=== PATIENT | male | born 1965 | race Caucasian/White ===

== ENCOUNTER 2017-10-26 14:45 | Inpatient (IN) | payer OTHER ==
[~2017-10-26] VITALS: Ht 185.4 cm; Wt 90.7 kg
[2017-10-26 15:00] VITALS: BP 140/88
[2017-10-26 15:40] LABS: BASOPHILS % (AUTO) 1.3 % (0.0-2.0); EOSINOPHILS % (AUTO) 1.9 % (0.0-3.0); HEMATOCRIT 38.7 % (42.0-52.0); HEMOGLOBIN 13.1 G/DL (14.2-18.0); LYMPHOCYTES % (AUTO) 44.7 % (20.0-45.0); MEAN CORPUSCULAR VOLUME 96 FL (80-99); MONOCYTES % (AUTO) 7.5 % (1.0-10.0); NEUTROPHILS % (AUTO) 44.5 % (45.0-75.0); PLATELET COUNT 230 K/UL (150-450); RED BLOOD COUNT 4.03 M/UL (4.70-6.10); RED CELL DISTRIBUTION WIDTH 12.1 % (11.6-14.8); WHITE BLOOD COUNT 5.9 K/UL (4.8-10.8)
[2017-10-26] MEDS ORDERED: [UNRECOGNIZED DRUG - OTHER] IV ONE (16:30)
[2017-10-26] MEDS ORDERED: LEVOTHYROXINE150 MCG ORAL (18:55)
[2017-10-26] MEDS ORDERED: ATORVASTATIN CA80 MG ORAL (18:55)
[2017-10-26] MEDS ORDERED: ATIVAN1 MG ORAL (18:55)
[2017-10-26] MEDS ORDERED: ODEFSEY TABLET1 EACH PO (18:55)
--- NOTE | 2017-10-26 19:54 | History and Physical ---
History of Present Illness General Date patient seen: Oct 26, 2017 Time patient seen: 16:30 Reason for Hospitalization: participation in clinical trial: [id number] Present Illness HPI Pt is electively admitted for above-captioned clinical trial. He has given informed consent for the drug study and wishes to proceed. Labs Test 10/26/17 14:00 White Blood Count 5.9 K/UL (4.8-10.8) Red Blood Count 4.03 M/UL (4.70-6.10) Hemoglobin 13.1 G/DL (14.2-18.0) Hematocrit 38.7 % (42.0-52.0) Mean Corpuscular Volume 96 FL (80-99) Mean Corpuscular Hemoglobin 32.4 PG (27.0-31.0) Mean Corpuscular Hemoglobin Concent 33.7 G/DL (32.0-36.0) Red Cell Distribution Width 12.1 % (11.6-14.8) Platelet Count 230 K/UL (150-450) Mean Platelet Volume 8.5 FL (6.5-10.1) Neutrophils (%) (Auto) 44.5 % (45.0-75.0) Lymphocytes (%) (Auto) 44.7 % (20.0-45.0) Monocytes (%) (Auto) 7.5 % (1.0-10.0) Eosinophils (%) (Auto) 1.9 % (0.0-3.0) Basophils (%) (Auto) 1.3 % (0.0-2.0) Allergies: Coded Allergies: EFAVIRENZ (Verified Allergy, Unknown, 10/26/17) SULFAMETHOXAZOLE (Verified Allergy, Unknown, rash, 10/26/17) Medication History Scheduled Atorvastatin Calcium* (Lipitor*), 80 MG ORAL DAILY, (Reported) Emtricitab/Rilpiviri/Tenof Ala (Odefsey Tablet), 1 EACH PO DAILY, (Reported) Levothyroxine Sodium* (Levothyroxine Sodium*), 175 MCG ORAL DAILY, (Reported) Lorazepam* (Ativan*), 1 MG ORAL BEDTIME, (Reported) Patient History History Provided By: Patient Healthcare decision maker Self Resuscitation status Full Code Advanced Directive on File No Patient History Narrative Patient was diagnosed with HIV in 2000; has been successfully treated, most recently with Odefsey. He feels well and has no acute problems. Past Medical/Surgical History Past Medical/Surgical History: (1) nodular goiter, now euthyroid on treatment (2) Hyperlipidemia (3) Clinical trial participant Review of Systems Constitutional: Reports: no symptoms Eye: Reports: no symptoms ENT: Reports: no symptoms Respiratory: Denies: cough, shortness of breath, stridor, wheezing, PATTEN, sputum Cardiovascular: Denies: chest pain, palpitations Gastrointestinal: Denies: abdominal pain, diarrhea, vomiting Genitourinary: Denies: dysuria Musculoskeletal: Reports: no symptoms Skin: Denies: rash Psychiatric: Reports: no symptoms Neurological: Reports: no symptoms Endocrine: Reports: no symptoms Hematologic/Lymphatic: Reports: no symptoms Physical Exam Last 24 Hour Vital Signs Date Time Temp Pulse Resp B/P (MAP) Pulse Ox O2 Delivery O2 Flow Rate FiO2 10/26/17 15:00 97.4 55 21 140/88 100 Room Air 97.4 Laboratory Tests Test 10/26/17 14:00 White Blood Count 5.9 K/UL (4.8-10.8) Red Blood Count 4.03 M/UL (4.70-6.10) L Hemoglobin 13.1 G/DL (14.2-18.0) L Hematocrit 38.7 % (42.0-52.0) L Mean Corpuscular Volume 96 FL (80-99) Mean Corpuscular Hemoglobin 32.4 PG (27.0-31.0) H Mean Corpuscular Hemoglobin Concent 33.7 G/DL (32.0-36.0) Red Cell Distribution Width 12.1 % (11.6-14.8) Platelet Count 230 K/UL (150-450) Mean Platelet Volume 8.5 FL (6.5-10.1) Neutrophils (%) (Auto) 44.5 % (45.0-75.0) L Lymphocytes (%) (Auto) 44.7 % (20.0-45.0) Monocytes (%) (Auto) 7.5 % (1.0-10.0) Eosinophils (%) (Auto) 1.9 % (0.0-3.0) Basophils (%) (Auto) 1.3 % (0.0-2.0) Height (Feet): 6 Height (Inches): 1.00 Weight (Pounds): 200 Medications Current Medications Medications (Trade) Dose Ordered Sig/Mendy Route PRN Reason Start Time Stop Time Status Last Admin Dose Admin Investigational Drug 150 mg/ Sodium Chloride 48 ml @ 96 mls/hr ONCE ONCE IV 10/27/17 06:30 10/27/17 06:59 Patient Own Medication (Patient's Own Med) 1 ea DAILY@1000 ORAL 10/27/17 10:00 11/26/17 09:59 Patient Own Medication (Patient's Own Med) 1 ea DAILY@1000 ORAL 10/27/17 10:00 11/26/17 09:59 Patient Own Medication (Patient's Own Med) 1 ea DAILY@1000 ORAL 10/27/17 10:00 11/26/17 09:59 Patient Own Medication (Patient's Own Med) 1 ea QHS PRN ORAL SLEEP 10/26/17 17:15 11/25/17 17:14 TRESSA CARRERA Oct 26, 2017 19:54
[2017-10-26 21:00] VITALS: BP 112/63
[2017-10-26] MEDS: LORAZEPAM 1 MG TABLET ORAL PRN (21:26)
[2017-10-27] MEDS ORDERED: [UNRECOGNIZED DRUG - MIXTURE] IV ONE ×2 (06:30)
[2017-10-27 08:00] VITALS: BP 128/78
[2017-10-27] MEDS ORDERED: LEVOTHYROXINE 175 MCG TABLET ORAL SCH (10:00)
[2017-10-27] MEDS ORDERED: ATORVASTATIN 80 MG TABLET ORAL SCH (10:00)
[2017-10-27] MEDS: ODEFSEY ORAL SCH (10:26)
[2017-10-27 12:00] VITALS: BP 124/76
--- NOTE | 2017-10-27 14:38 | General Progress Note ---
Assessment/Plan Problem List: (1) HIV (human immunodeficiency virus infection) ICD Codes: B20 - Human immunodeficiency virus [HIV] disease SNOMED: 52195135 Status: doing well Status Narrative Patient doing well. Assessment/Plan Will continue per [id number] protocol. Subjective Date patient seen: Oct 27, 2017 Time patient seen: 12:00 Constitutional: Reports: no symptoms HEENT: Reports: no symptoms Cardiovascular: Denies: chest pain, lightheadedness Respiratory: Denies: cough, shortness of breath Gastrointestinal/Abdominal: Denies: abdominal pain, diarrhea, nausea Genitourinary: Denies: burning, hematuria Neurologic/Psychiatric: Reports: no symptoms Endocrine: Reports: no symptoms Hematologic/Lymphatic: Reports: no symptoms Allergies: Coded Allergies: EFAVIRENZ (Verified Allergy, Unknown, 10/26/17) SULFAMETHOXAZOLE (Verified Allergy, Unknown, rash, 10/26/17) Subjective Patient feels well. Tolerated infusion of investigational agent c. 0630 without any adverse reaction reported. Objective Last 24 Hour Vital Signs Date Time Temp Pulse Resp B/P (MAP) Pulse Ox O2 Delivery O2 Flow Rate FiO2 10/27/17 12:00 97.8 57 18 124/76 98 Room Air 97.8 10/27/17 08:00 97.5 52 18 128/78 98 Room Air 97.5 10/26/17 21:00 97.4 51 18 112/63 97 Room Air 97.4 10/26/17 15:00 97.4 55 21 140/88 100 Room Air 97.4 Intake and Output 10/26/17 10/27/17 19:00 07:00 Intake Total 300 ml 240 ml Balance 300 ml 240 ml Intake Oral 300 ml 240 ml # Voids 1 2 Height (Feet): 6 Height (Inches): 1.00 Weight (Pounds): 200 General Appearance: WD/WN EENT: PERRL/EOMI Neck: supple Cardiovascular: normal rate Respiratory/Chest: lungs clear Abdomen: soft Edema: no edema noted Arm (L), no edema noted Arm (R), no edema noted Leg (L), no edema noted Leg (R), no edema noted Pedal (L), no edema noted Pedal (R), no edema noted Generalized Skin: rash - none TRESSA CARRERA Oct 27, 2017 14:38
[2017-10-27 16:00] VITALS: BP 102/64
[2017-10-27] MEDS: LORAZEPAM 1 MG TABLET ORAL PRN (21:02)
[2017-10-28 00:35] VITALS: BP 108/60
[2017-10-28] MEDS: LEVOTHYROXINE 175 MCG TABLET ORAL SCH (06:42)
[2017-10-28 07:30] LABS: BASOPHILS % (AUTO) 1.1 % (0.0-2.0); EOSINOPHILS % (AUTO) 1.7 % (0.0-3.0); HEMATOCRIT 41.1 % (42.0-52.0); LYMPHOCYTES % (AUTO) 47.3 % (20.0-45.0); MEAN CORPUSCULAR VOLUME 94 FL (80-99); MONOCYTES % (AUTO) 8.5 % (1.0-10.0); NEUTROPHILS % (AUTO) 41.4 % (45.0-75.0); PLATELET COUNT 160 K/UL (150-450); RED BLOOD COUNT 4.37 M/UL (4.70-6.10); RED CELL DISTRIBUTION WIDTH 11.6 % (11.6-14.8); WHITE BLOOD COUNT 4.3 K/UL (4.8-10.8)
[2017-10-28 09:00] VITALS: BP 125/76
[2017-10-28] MEDS: ODEFSEY ORAL SCH (10:11)
--- NOTE | 2017-10-28 11:57 | General Progress Note ---
Assessment/Plan Problem List: (1) HIV (human immunodeficiency virus infection) Assessment & Plan: Patient doing well now 1 day post administration of investigational drug. We will continue to observe him per protocol; I anticipate he will be discharged tomorrow morning for outpatient follow up. All questions offered were addressed. Labs Test 10/26/17 14:00 10/28/17 06:45 White Blood Count 5.9 K/UL (4.8-10.8) 4.3 K/UL (4.8-10.8) Red Blood Count 4.03 M/UL (4.70-6.10) 4.37 M/UL (4.70-6.10) Hemoglobin 13.1 G/DL (14.2-18.0) 14.0 G/DL (14.2-18.0) Hematocrit 38.7 % (42.0-52.0) 41.1 % (42.0-52.0) Mean Corpuscular Volume 96 FL (80-99) 94 FL (80-99) Mean Corpuscular Hemoglobin 32.4 PG (27.0-31.0) 32.1 PG (27.0-31.0) Mean Corpuscular Hemoglobin Concent 33.7 G/DL (32.0-36.0) 34.1 G/DL (32.0-36.0) Red Cell Distribution Width 12.1 % (11.6-14.8) 11.6 % (11.6-14.8) Platelet Count 230 K/UL (150-450) 160 K/UL (150-450) Mean Platelet Volume 8.5 FL (6.5-10.1) 9.7 FL (6.5-10.1) Neutrophils (%) (Auto) 44.5 % (45.0-75.0) 41.4 % (45.0-75.0) Lymphocytes (%) (Auto) 44.7 % (20.0-45.0) 47.3 % (20.0-45.0) Monocytes (%) (Auto) 7.5 % (1.0-10.0) 8.5 % (1.0-10.0) Eosinophils (%) (Auto) 1.9 % (0.0-3.0) 1.7 % (0.0-3.0) Basophils (%) (Auto) 1.3 % (0.0-2.0) 1.1 % (0.0-2.0) ICD Codes: B20 - Human immunodeficiency virus [HIV] disease SNOMED: 63856857 Status: doing well Assessment/Plan Will continue per [id number] protocol. Subjective Date patient seen: Oct 28, 2017 Time patient seen: 09:45 Constitutional: Reports: no symptoms HEENT: Reports: no symptoms Cardiovascular: Denies: chest pain Respiratory: Denies: cough, shortness of breath Gastrointestinal/Abdominal: Denies: diarrhea, nausea, vomiting Genitourinary: Denies: burning, frequency Neurologic/Psychiatric: Reports: no symptoms Endocrine: Reports: no symptoms Allergies: Coded Allergies: EFAVIRENZ (Verified Allergy, Unknown, 10/26/17) SULFAMETHOXAZOLE (Verified Allergy, Unknown, rash, 10/26/17) Subjective Patient feels well. Tolerated infusion of investigational agent c. 0630 without any adverse reaction reported. Objective Last 24 Hour Vital Signs Date Time Temp Pulse Resp B/P (MAP) Pulse Ox O2 Delivery O2 Flow Rate FiO2 10/28/17 09:00 97.8 64 18 125/76 98 Room Air 97.8 10/28/17 00:35 97.3 65 17 108/60 99 Room Air 97.3 10/27/17 16:00 97.9 55 20 102/64 96 Room Air 97.9 10/27/17 12:00 97.8 57 18 124/76 98 Room Air 97.8 Intake and Output 10/27/17 10/28/17 19:00 07:00 Intake Total 480 ml 1000 ml Balance 480 ml 1000 ml Intake Oral 480 ml 1000 ml # Voids 3 3 Laboratory Tests 10/28/17 06:45: White Blood Count 4.3L, Red Blood Count 4.37L, Hemoglobin 14.0L, Hematocrit 41.1L, Mean Corpuscular Volume 94, Mean Corpuscular Hemoglobin 32.1H, Mean Corpuscular Hemoglobin Concent 34.1, Red Cell Distribution Width 11.6, Platelet Count 160, Mean Platelet Volume 9.7, Neutrophils (%) (Auto) 41.4L, Lymphocytes ( %) (Auto) 47.3H, Monocytes (%) (Auto) 8.5, Eosinophils (%) (Auto) 1.7, Basophils (%) (Auto) 1.1 Height (Feet): 6 Height (Inches): 1.00 Weight (Pounds): 200 General Appearance: WD/WN EENT: PERRL/EOMI Neck: supple Cardiovascular: normal rate, no gallop/murmur Respiratory/Chest: lungs clear Abdomen: non tender, soft TRESSA CARRERA Oct 28, 2017 11:57
[2017-10-28 16:11] VITALS: BP 114/64
[2017-10-28] MEDS ORDERED: NS 275ml ONE (17:39)
[2017-10-28 20:00] VITALS: BP 112/65
[2017-10-28] MEDS ORDERED: ATORVASTATIN 80 MG TABLET ORAL SCH (21:00)
[2017-10-28] MEDS: LORAZEPAM 1 MG TABLET ORAL PRN (21:30)
[2017-10-29 06:15] VITALS: BP 111/66
[2017-10-29] MEDS: LEVOTHYROXINE 175 MCG TABLET ORAL SCH (06:17)
--- NOTE | 2017-10-29 07:02 | Discharge Instructions ---
Discharge Instructions Discharge Instructions Follow up with: Dr. Carrera Call MD/Return to Hospital if: patient doesn't feel well Diet: regular Resume Normal Activity?: Yes Activity: resume normal activities Pneumonia Vaccine: pt rcvd vaccine prior to this visit Influenza Vaccine (May to Oct): pt rcvd vaccine prior to this visit For Congestive Heart Failure Reminder Report to your physician any weight gain of 5 pounds or more in one week. TRESSA CARRERA Oct 29, 2017 07:02
[2017-10-29 07:03] LABS: BASOPHILS % (AUTO) 1.1 % (0.0-2.0); EOSINOPHILS % (AUTO) 2.5 % (0.0-3.0); HEMATOCRIT 41.4 % (42.0-52.0); HEMOGLOBIN 14.5 G/DL (14.2-18.0); LYMPHOCYTES % (AUTO) 46.1 % (20.0-45.0); MEAN CORPUSCULAR VOLUME 93 FL (80-99); MONOCYTES % (AUTO) 9.2 % (1.0-10.0); NEUTROPHILS % (AUTO) 41.1 % (45.0-75.0); PLATELET COUNT 168 K/UL (150-450); RED BLOOD COUNT 4.46 M/UL (4.70-6.10); RED CELL DISTRIBUTION WIDTH 11.6 % (11.6-14.8); WHITE BLOOD COUNT 4.4 K/UL (4.8-10.8)
[2017-10-29] MEDS: ODEFSEY ORAL SCH (08:05)
[2017-10-29 09:00] VITALS: BP 123/81
--- NOTE | 2017-10-30 12:21 | Discharge Summary ---
Discharge Summary Discharge Summary Discharge Summary DATE OF ADMISSION: 10/26/2017 DATE OF DISCHARGE: 10/29/2017 BRIEF HOSPITAL COURSE: Patient is a 52-year-old male who was electively admitted for participation in a clinical trial: [id number]. He was diagnosed with HIV in 2000; has been successfully treated, most recently with Odefsey. He has medical history significant for nodular goiter, now euthyroid on treatment, hyperlipidemia. He tolerated investigational agent without any adverse reaction reported. He was eventually discharged home. FINAL DIAGNOSES: 1. HIV 2. Clinical trial DISPOSITION: Patient was discharged home. DISCHARGE MEDICATIONS: Refer to Discharge Medication List. I have been assigned to dictate discharge summary on this account, and I was not involved in the patient's management. Kianna David NP Oct 30, 2017 12:21
== END 2017-10-29 08:45 | disposition home or self-care (01) | DRG 977 ==
LOC: 3E 14:45
DX: B20 Human immunodeficiency virus [HIV] disease (principal); E78.5 Hyperlipidemia, unspecified; Z00.6 Encounter for examination for normal comparison and control in clinical research program
CPT/HCPCS: 36415; 85025